=== PATIENT | male | born 1955 | race African-American/Black ===

== ENCOUNTER 2017-12-24 10:21 | Emergency (ER) | payer MEDICAID, SELFPAY ==
[2017-12-24] MEDS ORDERED: Magnesium Citrate 300 ML BOT ONE (10:52)
== END 2017-12-24 10:52 | disposition home or self-care (01) ==
LOC: BURERS 10:21
DX: K59.00 Constipation, unspecified (principal); F41.9 Anxiety disorder, unspecified; F17.210 Nicotine dependence, cigarettes, uncomplicated
CPT/HCPCS: 99283

== ENCOUNTER 2020-01-08 15:23 | Emergency (ER) | payer SELFPAY ==
[2020-01-08] MEDS ORDERED: Bisacodyl 10 MG SUPP ONE (15:56)
[2020-01-08] MEDS ORDERED: Magnesium Citrate 300 ML BOT ONE (15:56)
== END 2020-01-08 16:07 | disposition home or self-care (01) ==
LOC: BURERS 15:23
DX: K59.00 Constipation, unspecified (principal); F17.210 Nicotine dependence, cigarettes, uncomplicated; F41.9 Anxiety disorder, unspecified
CPT/HCPCS: 99283